=== PATIENT | male | born 1980 | race Caucasian/White ===

== ENCOUNTER 2018-12-04 20:11 | Emergency (ER) | payer SELFPAY ==
[~2018-12-04] VITALS: Ht 175.3 cm; Wt 123.0 kg
[2018-12-04] MEDS ORDERED: HALOPERIDOL LACTATE 5MG/ML VIAL IM ONE ×2 (22:45→23:30)
[2018-12-04] MEDS ORDERED: DIPHENHYDRAMINE 50MG/ML VIAL IV ONE (23:00)
[2018-12-04] MEDS ORDERED: LORAZEPAM 2MG/ML CPJ IM ONE (23:45)
[2018-12-05 10:11] VITALS: BP 152/89
== END 2018-12-05 12:04 | disposition home or self-care (01) ==
LOC: ER 20:23
DX: F15.10 Other stimulant abuse, uncomplicated (principal)
CPT/HCPCS: 96372; 96374; 99283; J1200; J1630; J2060

== ENCOUNTER 2018-12-05 11:48 | Emergency (ER) | payer SELFPAY ==
[~2018-12-05] VITALS: Ht 162.6 cm; Wt 85.0 kg
[2018-12-05 11:49] VITALS: BP 149/95
== END 2018-12-05 12:03 | disposition left against medical advice (07) ==
LOC: ER 11:48
DX: R07.9 Chest pain, unspecified (principal); Z53.21 Procedure and treatment not carried out due to patient leaving prior to being seen by health care provider